=== PATIENT | female | born 1940 | race Caucasian/White ===

== ENCOUNTER 2022-01-13 05:50 | Day surgery (SDC) | payer OTHER ==
[~2022-01-13] VITALS: Ht 160 cm; Wt 59.1 kg
[2022-01-13] MEDS ORDERED: BENZOCAINE 20% 50 MCG/SPRAY 57 GM TP ONE (05:51)
[2022-01-13] MEDS ORDERED: LIDOCAINE 2% 11 ML JELLY TP ONE (05:51)
[2022-01-13] MEDS ORDERED: LIDOCAINE 4% 50 ML SOLUTION TP ONE (05:51)
[2022-01-13] MEDS ORDERED: SODIUM CHLORIDE 0.9% 1,000 ML IV ONE (06:30)
[2022-01-13 06:40] LABS: COVID AG,FIA SOURCE NASAL SWAB
[2022-01-13] MEDS ORDERED: TELM1TAB42 PO (08:13)
[2022-01-13] MEDS ORDERED: FentaNYL CITRATE PF 100 MCG/2 ML VIAL ONE (08:31)
[2022-01-13] MEDS ORDERED: MIDAZOLAM HCL 2 MG/2 ML VIAL ONE (08:31)
[2022-01-13] MEDS ORDERED: MethylPREDNISolone SOD SUCC 125 MG/2 ML VIAL ONE (09:23)
[2022-01-13] MEDS ORDERED: MethylPREDNISolone SOD SUCC 125 MG/2 ML VIAL IVP ONE (09:30)
== END 2022-01-13 11:55 | disposition home or self-care (01) ==
LOC: SURGERY 05:50
PROVIDERS: ATTEND Internal Medicine Critical Care Medicine
DX: R05.3 Chronic cough (principal); R91.1 Solitary pulmonary nodule; R04.2 Hemoptysis; I10 Essential (primary) hypertension; R49.0 Dysphonia; Z98.890 Other specified postprocedural states; Z96.659 Presence of unspecified artificial knee joint; Z79.899 Other long term (current) drug therapy
CPT/HCPCS: 31623; 88112; 87101; 87220; 87070; 88305; 31624; 71045; 87015; 87426; 87206; J3010; J2250; J2930; Q9967; C9803; Z7610